=== PATIENT | female | born 1960 | race Caucasian/White ===

== ENCOUNTER 2017-07-16 20:44 | Day surgery (SDC) | payer BC ==
[~2017-07-16 20:44] MED LIST: Dexamethasone 20 MG/5 ML VIAL ONE; Lidocaine 1% PF 5 ML VIAL ONE; PROPOFOL 200 MG/20 ML VIAL ONE; Succinylcholine Chloride 20 MG/ML 10 ml SYRINGE FS ONE
[2017-07-16] MEDS ORDERED: Ondansetron HCl/PF 4 MG/2 ML Vial ONE (21:18)
[2017-07-16] MEDS ORDERED: Midazolam HCl 2 mg/2 ml Vial ONE (22:59)
[2017-07-16] MEDS ORDERED: Fentanyl 100 MCG/2 ML VIAL ONE (22:59)
--- NOTE | 2017-07-17 01:55 | CON ---
DATE OF CONSULTATION: 07/16/2017 REASON FOR CONSULTATION: Foreign body in esophagus. HISTORY OF PRESENT ILLNESS: Ms. Miguel is a pleasant 57-year-old female, who was eating ribs at lunch today when she felt one bite got stuck. She apparently was at [facility] ER in [place]. Sh e could not get it to go down or come up, and she was unable to swallow liquids. A CAT scan of the c hest was performed. This apparently showed a foreign body in the esophagus. She was subsequently tr ansferred to this facility 2137 hours. Here, the emergency room physician started her on IV and trie d to give her some glucagon, which she felt helped, but it still would not pass. She continues to sp it up secretions. She does not have any overt pain in her throat. She has no problems breathing. S he has a dull discomfort in her lower mid chest. She reports this has happened once before several m onths ago, but it does not happen on a regular basis. She denies a history of reflux. She states th at she did not swallow the bone, just the meat. PAST MEDICAL HISTORY: Diabetes. PAST SURGICAL HISTORY: section x2 and previous colonoscopy in my office about 3-4 years ago by her memory. ALLERGIES: None. SOCIAL HISTORY: She does not smoke, drink, or use drugs. REVIEW OF SYSTEMS: Genitourinary: Negative for abdominal pain, nausea, vomiting, diarrhea, change i n bowel function, hematemesis. Respiratory: Negative for shortness of breath or cough. Cardiac: N egative for chest pain, shortness of breath, dyspnea on exertion. Neurologic: Negative. Psychiatri c: Negative. PHYSICAL EXAMINATION: VITAL SIGNS: Temperature 98.1, pulse 61, blood pressure 145/75. GENERAL: She is sitting comfortably, not in lot of distress, though she has an emesis bag with her a nd she spit some while we talk. NECK: Supple without adenopathy. There is no tenderness. LUNGS: Clear. HEART: Regular rate and rhythm without clicks or murmurs. ABDOMEN: Soft, nontender. LABORATORY DATA: Labs at the outside facility: Comprehensive metabolic profile, normal. White coun t 10.9, hemoglobin 13.8, platelet count 356. CT report from outside facility shows particulate mater ial in the distal esophagus; dilation and fluid in the more proximal esophagus; no signs of perforati on; cluster of cysts; small peripheral nodule in the right lower lung. CT neck was reportedly normal . MEDICATIONS AT HOME: Atorvastatin, lisinopril, metformin. ASSESSMENT: Foreign body in the esophagus, not amenable to medical management. PLAN: Esophagogastroduodenoscopy with removal of foreign body.
--- NOTE | 2017-07-17 05:29 | OP ---
DATE OF OPERATION: 07/16/2017 PROCEDURES: EGD with removal of foreign body. ANESTHESIA: General endotracheal anesthesia. PREOPERATIVE DIAGNOSIS: Foreign body of the esophagus. Patient was eating ribs and meat get stuck t hat was not amenable to medical management in the ER. POSTOPERATIVE DIAGNOSIS: Meat bolus, distal esophagus, removed with a rat-tooth forceps. PROCEDURE IN DETAIL: After the patient was informed the risks, benefits, possible complications of e ndoscopy including perforation, bleeding, reactions to medication and aspiration, informed consent wa s obtained. Patient was brought to the endoscopy suite, where she was prepped and draped in standard fashion, then she was intubated. Rapid sequence induction. Once airway was secured, bite block was placed in incisor orifice. The endoscope was advanced through the esophagus into the bite block and carefully to the esophagus. Large amount of liquid suctioned out in the distal esophagus, there was a meat bolus and it was picked out until large piece could be grasped and then was pulled out in tot al with rat-tooth forceps. The esophagus was evaluated, there was a nodule, the GE junction appears benign inflammatory, it was not biopsied. This was quite a bit of inflammation here at this time. T he stomach was entered and found to be normal as was the duodenum, second and third portion. Retrofl exed views revealed no mass at the GE junction inferiorly. The scope was removed. RECOMMENDATIONS: 1. Patient was extubated, had a mild laryngospasm. She was given Decadron by the anesthesiologist a nd felt there is some airway irritation possibly and then successfully extubated. She never became h ypoxic and with stats staying below 93%. 2. Omeprazole 40 mg p.o. daily. 3. Soft liquid diet this evening and then soft diet in the next 24 hours. 4. Return to the office for dilatation biopsy of the nodule at the GE junction in 1-2 weeks.
== END 2017-07-17 00:45 | disposition home or self-care (01) ==
LOC: ERS 20:44 → SDC/OP 22:19
PROVIDERS: ATTEND Internal Medicine Gastroenterology
PROC: 0DC58ZZ Extirpation of Matter from Esophagus, Via Natural or Artificial Opening Endoscopic (ICD-10-PCS; principal; 2017-07-16)
DX: T18.128A Food in esophagus causing other injury, initial encounter (principal); E11.9 Type 2 diabetes mellitus without complications; I10 Essential (primary) hypertension; E78.5 Hyperlipidemia, unspecified; Z79.84 Long term (current) use of oral hypoglycemic drugs; Z79.899 Other long term (current) drug therapy; Z98.890 Other specified postprocedural states
CPT/HCPCS: 96361; 96374; 96375; J1100; J1610; J2001; J2250; J2405; J2704; J3010

== ENCOUNTER 2017-12-07 05:58 | Observation (INO) | payer BC ==
[2017-12-07] MEDS ORDERED: Lidocaine Viscous Sol 2% 15 ml UD Cup ONE (06:22)
[2017-12-07] MEDS ORDERED: Mag-Al 1200 mg/1200 mg/30 ML UDCUP ONE (06:22)
[2017-12-07 06:45] LABS: #Eosinphils 0.1 thou/uL (0.0-0.7); #Lymphocytes 1.5 thou/uL (1.20-3.40); #Monocytes 0.7 thou/uL (0.11-0.59); #Neutrophils 7.3 thou/uL (1.40-6.50); %Basophils 0.5 % (0.0-1.0); %Eosinophils 0.9 % (0.0-10.0); %Lymphocytes 16.1 % (21.0-51.0); %Monocytes 6.9 % (0.0-10.0); %Neutrophils 75.7 % (42.0-75.0); Hemoglobin 12.7 g/dL (12.0-16.0); Mean Corpuscular HGB CONC 35.2 g/dL (32.0-36.0); Mean Corpuscular Hemoglobin 32.3 pg (27.0-31.0); Mean Corpuscular Volume 91.8 fL (78.0-98.0); Mean Platelet Volume 7.1 fL (7.4-10.4); Platelet Count 221 thou/uL (130-400); RBC Distribution Width 11.1 % (11.5-14.5); Red Blood Cell (RBC) Count 3.92 mill/uL (4.20-5.40); White Blood Cell (WBC) Count 9.6 thou/uL (4.8-10.8)
[2017-12-07 07:02] LABS: ALT (SGPT) 26 U/L (8-55); AST (SGOT) 23 U/L (5-34); Albumin 4.1 g/dL (3.5-5.0); Alkaline Phosphatase 95 U/L (40-150); Anion Gap 18 mmol/L (10-20); BUN (Urea Nitrogen) 13 mg/dL (9.8-20.1); Bilirubin, Total 2.5 mg/dL (0.2-1.2); Calc. Creatinine Clearance 0 mL/min (70-130); Calcium 9.3 mg/dL (7.8-10.44); Carbon Dioxide 22 mmol/L (22-29); Chloride 87 mmol/L (98-107); Estimated GFR-MDRD 85; Globulin 2.6 g/dL (2.4-3.5); Glucose 119 mg/dL (70-105); Lipase 12 U/L (8-78); Potassium 3.1 mmol/L (3.5-5.1); Protein, Total 6.7 g/dL (6.0-8.3); Sodium 124 mmol/L (136-145)
[2017-12-07 07:05] LABS: CKMB 2.9 ng/mL (0-6.6); Troponin I Less than 0.010 ng/mL (< 0.028)
[2017-12-07] MEDS ORDERED: Pot Chloride/Pot Bicarb/Cit Ac 25 mEq Effervescent Tablet PO SCH (08:00)
[2017-12-07] MEDS ORDERED: Bisacodyl 5 MG TAB PO PRN (08:25)
[2017-12-07] MEDS ORDERED: Acetaminophen 325 MG TAB PO PRN (08:25)
[2017-12-07] MEDS ORDERED: Ondansetron HCl/PF 4 MG/2 ML Vial IVP PRN (08:25)
[2017-12-07] MEDS ORDERED: Ondansetron ODT 4 MG TAB PO PRN (08:25)
[2017-12-07] MEDS ORDERED: Sodium Chloride 0.9% 1,000 ML IV SCH (08:30)
--- NOTE | 2017-12-07 08:52 | RAD ---
PORTABLE CHEST 1 VIEW: Date: 12/07/17 Time: 0621 hours HISTORY: Nausea and vomiting. FINDINGS: The heart size is normal. The lungs are expanded without focal areas of consolidation, pneumothoraces , or pleural effusions. IMPRESSION: No acute process. POS: [facility]
[2017-12-07] MEDS ORDERED: Famotidine/PF 20 mg/2ml Vial SLOW IVP SCH (09:00)
[2017-12-07] MEDS ORDERED: Enoxaparin Sodium 40 MG/0.4 ML SYRINGE SC SCH (09:00)
[2017-12-07 09:47] VITALS: BMI 30.8
[2017-12-07 11:11] LABS: Osmolality, Urine 573 mOsm/kg (300-900)
--- NOTE | 2017-12-07 11:17 | CON ---
DATE OF CONSULTATION: 12/07/2017 REASON FOR CONSULTATION: Chest pain. HISTORY OF PRESENT ILLNESS: Ms. Miguel is a pleasant 57-year-old white female who comes to the ospital for epigastric pain. She was woken up at midnight yesterday with pain in the upper part of h er abdomen. She drank a warm Dr. Pepper which made her throw up. She eventually went back to sleep, woke up in the morning and had the same symptoms. She drank now a cold diet DrKassandra Del Rio and she thre w up again. She started reading online and saw that this could be a heart attack, so she decided to come in for evaluation. She has a history of esophageal strictures. She has seen Dr. Fernandes for thi s. She had a food bolus back in July which had to be removed endoscopically and eventually had a di latation about 2 weeks later, she was found to have Helicobacter pylori and was treated twice for it as it would not become negative. She feels that this is related to her GI tract as she noticed a lot of belching with a lot of acid taste in her mouth. Currently, she is pain free. PAST MEDICAL HISTORY: 1. Esophageal stricture, status post dilatation. 2. Type 2 diabetes. 3. Hypertension. 4. Hyperlipidemia. 5. Helicobacter pylori as above. PAST SURGICAL HISTORY: 1. twice in the past. 2. Esophageal dilatation as above. SOCIAL HISTORY: Social alcohol use, but rare, no tobacco or drug use. FAMILY HISTORY: Father of a massive CA at age 68. Brother had a bypass at age 61. OUTPATIENT MEDICATIONS: 1. Metformin 500 mg twice a day. 2. Lisinopril/hydrochlorothiazide 20/25 mg a day. 3. Atorvastatin 20 mg at bedtime. 4. Potassium 9 mg twice a day. 5. Omeprazole 40 mg a day. ALLERGIES: No known drug allergies. REVIEW OF SYSTEMS: A 12-point review of systems was done and is all negative, unless stated in the h istory of present illness. PHYSICAL EXAMINATION: VITAL SIGNS: Temperature 97.6, pulse 63, respiratory rate 16, satting 92% on room air, blood pressur e 129/61. GENERAL: Awake, alert, oriented x3, in no distress. HEENT: Normocephalic, atraumatic. NECK: Supple. LUNGS: Clear. CARDIOVASCULAR: S1, S2, no S3, S4, no murmurs. ABDOMEN: Soft with positive bowel sounds. EXTREMITIES: No edema. SKIN: Warm and dry. LABORATORY WORK: Reviewed. CBC with a white count of 9.6, hemoglobin 12, hematocrit 36, platelet co unt 221. Chemistry with a sodium of 124, potassium 3.1, chloride of 87, carbon dioxide 22, glucose o f 119. Serum osmolality is 262, magnesium of 1.4, total bilirubin 2.5, AST and ALT are normal. Trop onin is undetectable x1. CK-MB normal x1. Albumin 4.1, lipase of 12. EKG was reviewed, normal sinus rhythm, no ischemic changes. Chest x-ray was normal. ASSESSMENT AND PLAN: Epigastric pain: Certainly this could be related to some level of angina; marquez freddy, most likely is related to a GI tract. Given her risk factors, she will need risk stratification , but this could certainly be done as an outpatient. We will plan on doing one more set of troponins and if this is negative, she should be able to be discharged home and we will call her and set up an outpatient stress test for further risk stratification. Thank you for letting us participate in the care of your patient. We continue to follow.
[2017-12-07 11:26] LABS: Sodium, Urine 91 mmol/L (Not Available)
[2017-12-07] MEDS ORDERED: Potassium Chloride 20 MEQ TAB PO SCH (12:15)
[2017-12-07 13:39] LABS: Troponin I Less than 0.010 ng/mL (< 0.028)
[2017-12-07 15:55] VITALS: BP 117/63; TEMP 97.8
[2017-12-07 16:45] LABS: Troponin I Less than 0.010 ng/mL (< 0.028)
[2017-12-07 17:55] LABS: Potassium 3.3 mmol/L (3.5-5.1); Sodium 130 mmol/L (136-145)
[2017-12-07] MEDS ORDERED: Magnesium Oxide 400 MG TAB PO SCH (21:00)
--- NOTE | 2017-12-07 22:17 | HP ---
DATE OF ADMISSION: 12/07/2017 CHIEF COMPLAINT: Chest pain. HISTORIAN: The patient, doreen. HISTORY OF PRESENT ILLNESS: This patient is a 57-year-old female with past medical history of esopha geal stricture, status post dilatation, type 2 diabetes, hypertension, hyperlipidemia, Helicobacter p ylori, presenting to the ED with epigastric pain, which woke the patient up yesterday at 12 a.m. The patient states that the pain was a pressure-like pain, which woke her up from her sleep and the pain was 6/10 on the pain scale and localized at the epigastric region, did not radiate to any other part of the body. States that this is her first time that she has ever had a pain like this before. The patient drank Dr. Pepper to try and help with the pain; however, she threw up after drinking Dr. Pep per and she also drank some cold water and she threw up again. Altogether, the patient stated she vo mited x2 and the patient thought that she was having a heart attack, so the patient spoke to the [facility] and and that prompted the ED visit. Of note, the patient states that in the past, she had a chicken stuck in her throat and she had to go and see a GI doctor who had to remove the chicken that was stuc k in her throat. In the process, the patient was found to have H. pylori after endoscopy and the pat ient was started on treatment. The patient then states that repeat stool culture showed that she had failed antibiotic treatment for the H. pylori. Therefore, the patient was started on another course of antibiotics, which recently she actually completed and the patient states that another stool test has been sent out, but she has not gotten the report. Currently, the patient is not having any epig astric chest pain. The patient says that she is feeling much better and she does not have any vomiti ng, nausea, palpitation, abdominal pain. REVIEW OF SYSTEMS: The patient came in complaining of epigastric pain at that time. Currently, the patient denies any epigastric pain, abdominal pain, urinary incontinence, shortness of breath, chest pain, palpitations, numbness or tingling sensations of her extremities, any headaches or dizziness. PAST MEDICAL HISTORY: Kindly refer to the [facility] for past medical history. PAST SURGICAL HISTORY: The patient had twice in the past and the patient had esophageal di latation. SOCIAL HISTORY: The patient denies alcohol use. The patient denies tobacco use. The patient lives at home with her . FAMILY HISTORY: The patient states that dad from [place]. Brother had bypass at the age of 61. MEDICATIONS: The patient takes, 1. Metformin 500 b.i.d. 2. Lisinopril/hydrochlorothiazide 20/25 daily. 3. Atorvastatin 20 at night. 4. Potassium b.i.d. 5. Omeprazole 40. ALLERGIES: No known drug allergies. CODE STATUS: The patient is full code. PHYSICAL EXAMINATION: VITAL SIGNS: Temperature 97.6, blood pressure 129/61, heart rate 63, respiratory rate of 16. GENERAL: The patient appears her stated age, lying in bed comfortably, not in acute distress. HEENT: Normocephalic, atraumatic. Pupils are equal, round and reactive to light. Extraocular muscl es are intact. No scleral icterus noted. Mucous membranes are moist. NECK: Supple. LUNGS: Clear to auscultation bilaterally. No wheezes, no rhonchi appreciated. CARDIOVASCULAR: Positive S1, S2. No murmurs, no gallops, no rubs appreciated. ABDOMEN: Soft, nontender, nondistended. Positive bowel sounds in all quadrants. No ecchymosis. No peritoneal signs. No palpable masses. EXTREMITIES: No edema. 5/5 upper extremity and lower extremity strength. Good pulses bilaterally o f the upper extremities and lower extremities. SKIN: Warm and dry and intact. No rashes appreciated. LABORATORY DATA: CBC, WBC count is 9.6, hemoglobin is 12, hematocrit is 36, platelet count is 221,00 0. Electrolytes, sodium is 124, potassium 3.1, chloride 87, carbon dioxide 22, glucose of 119. Seru m osmolarity is 262, magnesium of 1.4, bilirubin 2.5. AST and ALT are normal. Troponins negative. IMAGING: EKG reviewed, sinus rhythm. Chest x-ray that was done was normal. ASSESSMENT AND PLAN: This is a 57-year-old white female being admitted for, 1. Chest pain, rule out acute coronary syndrome. Currently, the patient's troponin has been negativ e. The patient's chest pain might be related to gastroesophageal reflux disease. We have the patien t on Pepcid. We will continue the patient on this medication. We have advised the patient to stay a way from spicy foods and foods that can exacerbate the patient's discomfort. We will continue to tel l the patient to be compliant with PPIs. Cardiology has been consulted . The patient can follo w up with him outpatient for outpatient stress test and also for further risk stratification. 2. Hyponatremia, most likely secondary to dehydration. The patient is on normal saline. We will co ntinue the patient on IV fluids. We will repeat the patient's BMP in the evening to assess the patie nt's sodium status. 3. Hypokalemia, being repleted. 4. Diabetes mellitus type 2 on sliding scale. 5. Hyperlipidemia. We will continue the patient on her home medications of statin. This case was dictated by Dr. Samson Allen on patient Myriam Morrell.
--- NOTE | 2017-12-07 23:54 | DIS ---
DISCHARGE DIAGNOSES: 1. Chest pain, rule out acute coronary syndrome. 2. Gastroesophageal reflux disease. 3. Hyponatremia. 4. Hypomagnesemia. 5. Hypokalemia. 6. Diabetes mellitus type 2. 7. Hypertension. 8. Hyperlipidemia. On the day of discharge, the patient was seen and examined by me. The patient is stable. The patien t does not have any complaints. I reviewed the labs. The patient has hypomagnesemia, repleted. We are discharging the patient on magnesium b.i.d. to be taken at home 5 days. We have repleted also th e hypokalemia that was seen. The patient was also given some IV fluids, which improved the patient's hyponatremia from 124 to 130. HOSPITAL COURSE: The patient was admitted for chest pain, rule out ACS. Cardiology saw the patient, examined the patient, does not think that the patient needs to have anything done in the hospital. The patient is to follow up with Cardiology as outpatient. The patient states that she has a history where she had chicken stuck in her throat and she had to get esophageal dilation and in the process, the patient was diagnosed with H. pylori and is being treated with PPIs and antibiotics. We have in structed the patient to follow up with GI. The patient is to stay away from fatty foods, fried foods , spicy foods. The patient also will be instructed to stay away from . At this point, the shaggy ent is in good and stable condition. IMAGES: X-ray that was ordered in the ED showed no acute pulmonary process. LABORATORY DATA: WBC was 9.6, hemoglobin 12.7, hematocrit was 32.3, platelets 221. Sodium 124, pota ssium 3.1, chloride 87, glucose 119, serum osmol was 262, magnesium 1.4. DISCHARGE ENCOUNTER: The patient's [id number] discharge lasted about 35 minutes. We will discharg e the patient in good and stable condition.
--- NOTE | 2017-12-09 16:56 | EKG ---
Test Reason : CP Blood Pressure : / mmHG Vent. Rate : 076 BPM Atrial Rate : 076 BPM P-R Int : 188 ms QRS Dur : 092 ms QT Int : 402 ms P-R-T Axes : 059 024 068 degrees QTc Int : 452 ms Sinus rhythm with occasional Premature ventricular complexes Nonspecific ST and T wave abnormality Abnormal ECG Confirmed by CHEYENNE DE LA ROSA DO ([id number]), news videotape editor ALAINA BRENNER ([id number]) on 12/09/2017 4:56:25 PM Referred By: Confirmed By:CEHYENNE DE LA ROSA DO
== END 2017-12-07 18:31 | disposition home or self-care (01) ==
LOC: ERS 05:58 → 2SW 08:19
PROVIDERS: ADMIT Internal Medicine; ATTEND Internal Medicine
DX: R07.9 Chest pain, unspecified (principal); R10.13 Epigastric pain; E11.9 Type 2 diabetes mellitus without complications; I10 Essential (primary) hypertension; E78.5 Hyperlipidemia, unspecified; E87.1 Hypo-osmolality and hyponatremia; E83.42 Hypomagnesemia; E87.6 Hypokalemia; K21.9 Gastro-esophageal reflux disease without esophagitis; Z79.84 Long term (current) use of oral hypoglycemic drugs; Z79.899 Other long term (current) drug therapy
CPT/HCPCS: 36415; 71045; 80053; 82553; 83690; 83735; 83930; 83935; 84300; 84484; 85025; 93005; 96361; 96374; G0378; J1650; S0028